=== PATIENT | male | born 1975 | race Caucasian/White ===

== ENCOUNTER 2022-10-06 10:42 | Emergency (ER) | payer OTHER, SELFPAY ==
[2022-10-06 10:53] VITALS: BP 110/81; PULSE 86; RESP 16; TEMP 36; O2SAT 98; BMI 27.1
[2022-10-06 11:09] VITALS: BP 133/83; PULSE 87; RESP 16; TEMP 36.7; O2SAT 96
--- NOTE | 2022-10-06 11:21 | PC.NURSE ---
pt alert to place but not date. He is pacing and diaphoretic, CIWA score 15. Provider notified. Asserts the he will leave in 15 minutes if he doesn't receive phenobarb.
--- NOTE | 2022-10-06 11:29 | ED_ITS ---
HPI - Alcohol General Chief Complaint: ETOH/Substance Use Stated Complaint: needs medical clearance? Time Seen by Provider: 10/06/22 11:06 Source: patient and family Mode of arrival: ambulatory Limitations: no limitations History of Present Illness HPI narrative: 47-year-old male with a history of hypertension, hyperlipidemia, [id number] diabetes, bipolar disorder, PSTD, Crohns, alcohol use disorder who presents with complaints of seeking detox. Patient reports that he drinks 3 pt of rum daily. He did have 3 nips this morning. He denies Any additional substance use. he reports he has been treated for phenobarbital in the past for alcohol withdrawal which has been helpful. He has adverse side effects secondary to benzodiazepine and so avoids these. He reports feeling depressed. Denies any SI or HI. No physical complaints Related Data Allergies Allergy/AdvReac Type Severity Reaction Status Date / Time bee pollen [Bee Stings] Allergy Severe ANAPHYLAXIS Verified 10/06/22 10:51 codeine [Codeine] Allergy Mild Verified 10/06/22 10:51 Review of Systems Review of Systems: Yes all other systems are reviewed and are negative Constitutional: Constitutional: Reports no additional constitutional complaints, Denies body ache(s), Denies chills, Denies fever(s), Denies headache(s) and Denies weakness Eyes: Eyes: Reports no additional eye complaints and Denies change in vision ENT: Reports system reviewed and no additional complaints, except as documented, Denies dizziness, Denies headache(s), Denies nasal congestion, Denies nasal discharge and Denies neck pain Cardiovascular: Cardiovascular: Reports no additional cardiovascular complaints, Denies chest pain, Denies leg edema and Denies dyspnea Respiratory: Respiratory: Reports no additional respiratory complaints, Denies cough and Denies dyspnea Gastrointestinal: Gastrointestinal: Reports no additional gastrointestinal complaints, Denies abdominal pain, Denies diarrhea, Denies nausea and Denies vomiting Genitourinary: Genitourinary: Denies urinary incontinence Musculoskeletal: Musculoskeletal: Reports no additional musculoskeletal complaints, Denies back pain, Denies arthralgias, Denies joint swelling, Denies neck pain, Denies numbness and Denies tingling Integumentary/Breasts: Skin/Breast: Reports system reviewed and no additional complaints, except as docu and Denies rash Neurologic: Reports system reviewed and no additional complaints, except as documented, Denies dizziness, Denies headache(s), Denies numbness, Denies tingling and Denies weakness Psychiatric: Psychiatric: Reports anxiety, Reports depression, Denies homicidal ideation and Denies suicidal ideation [facility] Past Medical History Attestation statement: The following information was validated with the patient. Source: old records reviewed and nursing notes reviewed Medical History Acute Crohn's disease Alcohol use disorder Bipolar disorder Diabetes type 2, controlled Hyperlipemia Hypertension PTSD (post-traumatic stress disorder) Social History Social History Alcohol intake: current Alcohol intake frequency: 3 or more drinks per day Smoked in Last 30 Days: No Use of substances other than those prescribed or required for medical reasons: Yes Substance Use Type: Marijuana Advance Directives: No Advance Directives Information Provided: Yes Physical Exam ED Vital Signs: Vital Signs - 24 hr 10/06/22 10:53 10/06/22 11:09 10/06/22 14:46 Temperature 96.8 F 98.0 F Pulse Rate 86 87 87 Respiratory Rate 16 16 18 Blood Pressure 110/81 133/83 114/77 Pulse Oximetry 98 96 Oxygen Delivery Method Room Air Room Air BMI result Body Mass Index 27.1 Const Other: +agitated, pacing General: alert and anxious Orientation/consciousness: patient oriented x3 Limitations: no limitations HENMT Head: Yes normal to inspection Ears: hearing grossly normal bilaterally Eyes General: appearance normal, both eyes and all related structures Pupils: Equal, round and reactive pupils present Neck Neck: Yes normal visual inspection Chest Chest palpation & inspection: normal inspection of the chest Resp Effort & Inspection: normal respiratory effort Auscultation: clear to auscultation bilaterally Cardio Rate: regular rate Rhythm: regular rhythm Peripheral pulses: Peripheral pulses 2+ throughout GI Inspection: Yes normal to inspection Neuro General: patient oriented x3 Cranial nerves: Yes Equal, round and reactive pupils present Course Reevaluation(s) Reevaluation #1: 1450- cleared by care team. Pending recovery nurses evaluation for possible detox Reevaluation #2: 1530-Nursing has informed me that the patient does not want to wait to be seen by the recovery nurse for detox bed placement. He would like to go home with his caregiver. No SI/HI. Ambulating with steady gait. Medical Decision Making Medical Decision Making [facility] Narrative: 47-year-old male here with complaints of seeking medical clearance for detox for alcohol. Patient reports drinks rum daily. Last drink several hours prior to arrival. No additional substance use. Patient reports feeling depressed. He denies suicidal thoughts. He is quite agitated, pacing, quite anxious. I did receive a call from the [facility] medical screener. Patient has been there several times for detox. She knows this patient well and is concerned that he may need a crisis evaluation. No physical complaints will obtain labs, drug screen, COVID screen. Patient reports he is unable to take benzodiazepines due to adverse side effects. He has tolerated phenobarbital well in the past. Will initiate protocol. Patient needs crisis clearance prior to detox bed search. Differential Diagnosis Differential Diagnoses: The differential diagnosis associated with the presentation includes alcohol withdrawal Consult Healthcare Provider Management of the patient was discussed with: Behavioral Health Provider Patient seen by CARE team (Giovanna)- does not feel that patient qualifies for inpatient psych or has any immediate risks. Lab Data [facility] Lab Attestation statement: I reviewed the patient's lab results. 10/06/22 11:38 10/06/22 11:38 Labs: Lab Results 10/06/22 10/06/22 10/06/22 Range/Units 11:38 11:38 11:38 WBC 4.5 L (4.8-10.8) X10*3/uL RBC 3.54 L (4.60-5.80) X10*6/uL Hgb 10.4 L (14.0-18.0) g/dl Hct 30.6 L (42.0-52.0) % MCV 86.4 (80.0-98.0) fL MCH 29.4 (27.0-33.0) pg MCHC 34.0 (31.0-36.0) g/dl RDW 14.8 (11.0-16.0) % Plt Count 226 (160-400) X10*3/uL MPV 11.1 (9.4-12.4) fL Immature Gran % (Auto) 0.2 (0.0-0.4) % Neut % (Auto) 41.2 L (45-73) % Lymph % (Auto) 45.4 H (20-40) % [place] % (Auto) 11.7 H (2-11) % Eos % (Auto) 1.3 (0-4) % Baso % (Auto) 0.2 (0-2) % Lymph # (Auto) 2.1 (1.2-4.9) X10*3/uL [place] # (Auto) 0.5 (0.1-1.2) X10*3/uL Eos # (Auto) 0.1 (0.0-0.4) X10*3/uL Baso # (Auto) 0.0 (0.0-0.2) X10*3/uL Abs Immat Gran (auto) 0.01 (0.00-0.03) X10*3/uL Absolute Neuts (auto) 1.9 L (2.0-8.3) x10*3/uL Absolute Nucleated RBC 0.000 (0.0-0.012) X10*3/uL Nucleated RBC % (auto) 0.0 (0.0-0.2) /100WBC Sodium 134 L (135-145) mmol/L Potassium 4.3 (3.3-5.1) mmol/L Chloride 98 (96-108) mmol/L Carbon Dioxide 25 (22-29) mmol/L Anion Gap 15 (12-20) BUN 22 H (9-16) mg/dL Creatinine 1.39 (0.5-1.4) mg/dL Estim Creat Clear Calc 71.3 Estimated GFR 55 Random Glucose 146 H (60-115) mg/dL Calcium 8.9 (8.4-10.2) mg/dL Total Bilirubin 0.5 (0.0-1.0) mg/dL Direct Bilirubin 0.2 (0.0-0.5) mg/dL AST 44 H (5-37) U/L ALT 29 (0-40) U/L Alkaline Phosphatase 84 (39-117) U/L Total Protein 6.9 (6.5-8.0) g/dL Albumin 3.9 (3.5-5.0) g/dL Salicylates < 5.0 L (15-30) mg/dL Urine Opiates Screen (Not Detect) Urine Fentanyl Screen (Not Detect) Acetaminophen < 17 (<30) mcg/mL Ur Barbiturates Screen (Not Detect) Ur Phencyclidine Scrn (Not Detect) Ur Amphetamines Screen (Not Detect) U Benzodiazepines Scrn (Not Detect) Urine Cocaine Screen (Not Detect) U Marijuana (THC) Screen (Not Detect) Ethyl Alcohol < 10 mg/dL COVID-19 (PAMELA) Negative (Negative) COVID-19 Clin Com See Note 10/06/22 Range/Units 12:27 WBC (4.8-10.8) X10*3/uL RBC (4.60-5.80) X10*6/uL Hgb (14.0-18.0) g/dl Hct (42.0-52.0) % MCV (80.0-98.0) fL MCH (27.0-33.0) pg MCHC (31.0-36.0) g/dl RDW (11.0-16.0) % Plt Count (160-400) X10*3/uL MPV (9.4-12.4) fL Immature Gran % (Auto) (0.0-0.4) % Neut % (Auto) (45-73) % Lymph % (Auto) (20-40) % [place] % (Auto) (2-11) % Eos % (Auto) (0-4) % Baso % (Auto) (0-2) % Lymph # (Auto) (1.2-4.9) X10*3/uL [place] # (Auto) (0.1-1.2) X10*3/uL Eos # (Auto) (0.0-0.4) X10*3/uL Baso # (Auto) (0.0-0.2) X10*3/uL Abs Immat Gran (auto) (0.00-0.03) X10*3/uL Absolute Neuts (auto) (2.0-8.3) x10*3/uL Absolute Nucleated RBC (0.0-0.012) X10*3/uL Nucleated RBC % (auto) (0.0-0.2) /100WBC Sodium (135-145) mmol/L Potassium (3.3-5.1) mmol/L Chloride (96-108) mmol/L Carbon Dioxide (22-29) mmol/L Anion Gap (12-20) BUN (9-16) mg/dL Creatinine (0.5-1.4) mg/dL Estim Creat Clear Calc Estimated GFR Random Glucose (60-115) mg/dL Calcium (8.4-10.2) mg/dL Total Bilirubin (0.0-1.0) mg/dL Direct Bilirubin (0.0-0.5) mg/dL AST (5-37) U/L ALT (0-40) U/L Alkaline Phosphatase (39-117) U/L Total Protein (6.5-8.0) g/dL Albumin (3.5-5.0) g/dL Salicylates (15-30) mg/dL Urine Opiates Screen Not Detected (Not Detect) Urine Fentanyl Screen Not Detected (Not Detect) Acetaminophen (<30) mcg/mL Ur Barbiturates Screen POSITIVE H (Not Detect) Ur Phencyclidine Scrn Not Detected (Not Detect) Ur Amphetamines Screen POSITIVE H (Not Detect) U Benzodiazepines Scrn POSITIVE H (Not Detect) Urine Cocaine Screen Not Detected (Not Detect) U Marijuana (THC) Screen POSITIVE H (Not Detect) Ethyl Alcohol mg/dL COVID-19 (PAMELA) (Negative) COVID-19 Clin Com Medications Administered Discontinued Medications Generic Name Dose Route Start Last Admin Trade Name Freq PRN Reason Stop Dose Admin Phenobarbital Sodium 310 mg 10/06/22 12:00 10/06/22 11:43 Phenobarbital Sodium 130 Mg/Ml Im Once IM 10/06/22 12:01 310 mg ONCE ONE Administration Protocol Phenobarbital Sodium 230 mg 10/06/22 15:00 10/06/22 14:50 Phenobarbital Sodium 130 Mg/Ml Vial Im Q3hx2 IM 10/06/22 18:01 230 mg Q3H MARIA C Administration Protocol Discharge Plan Discharge Clinical Impression: Alcohol use disorder Patient Disposition: Home, Self-Care Instructions: Alcohol Use Disorder (ED) Additional Instructions: we did offer to have the acid recovery operator look for a detox bed for you but you did not want to wait for this process to take place if you change your mind you are welcome to return at any time Referrals: Physician,Thao J [Primary Care Provider] - 1 week Interventions: [place]-Suicide Risk Severity Scale Last Done: 10/06/22 11:06 ED Discharge Assessment Last Done: 10/06/22 15:33 Discharge Date/Time: 10/06/22 15:34
[2022-10-06] MEDS: PHENobarbitaL sodium 130 MG/ML IM ONCE 310 MG IM (11:43)
[2022-10-06 11:45] LABS: MANUAL DIFF FLAG NO
--- NOTE | 2022-10-06 11:46 | PC.NURSE ---
pt medicated with phenobarb per order. Pt resting.
[2022-10-06 11:49] LABS: Basophils Percent Auto 0.2 % (0-2); Eosinophils Absolute Auto 0.1 X10*3/uL (0.0-0.4); Eosinophils Percent Auto 1.3 % (0-4); Hematocrit 30.6 % (42.0-52.0); Hemoglobin 10.4 g/dl (14.0-18.0); Imm Gran Abs Auto 0.01 X10*3/uL (0.00-0.03); Imm Gran Pct Auto 0.2 % (0.0-0.4); Lymphocytes Absolute Auto 2.1 X10*3/uL (1.2-4.9); Lymphocytes Percent Auto 45.4 % (20-40); Mean Corpuscular Hemoglobin 29.4 pg (27.0-33.0); Mean Corpuscular Volume 86.4 fL (80.0-98.0); Mean Platelet Volume 11.1 fL (9.4-12.4); Monocytes Absolute Auto 0.5 X10*3/uL (0.1-1.2); Monocytes Percent Auto 11.7 % (2-11); Neutrophils Absolute Auto 1.9 x10*3/uL (2.0-8.3); Neutrophils Percent Auto 41.2 % (45-73); Platelet Count 226 X10*3/uL (160-400); Red Blood Count 3.54 X10*6/uL (4.60-5.80); Red Cell Distribution Width 14.8 % (11.0-16.0); White Blood Count 4.5 X10*3/uL (4.8-10.8)
[2022-10-06 12:01] LABS: COVID-19 Test Negative (Negative); IDNOW Serial# 16C4AD1C
[2022-10-06 12:12] LABS: Acetaminophen LAB < 17 mcg/mL (<30); Alanine Aminotransferase 29 U/L (0-40); Albumin Level 3.9 g/dL (3.5-5.0); Alkaline Phosphatase 84 U/L (39-117); Anion Gap 15 (12-20); Aspartate Amino Transferase 44 U/L (5-37); Bilirubin Direct 0.2 mg/dL (0.0-0.5); Bilirubin Total 0.5 mg/dL (0.0-1.0); Blood Urea Nitrogen 22 mg/dL (9-16); Calcium 8.9 mg/dL (8.4-10.2); Carbon Dioxide 25 mmol/L (22-29); Chloride 98 mmol/L (96-108); Creatinine Clr Calc Pharmacy 71.3; Estimated Glomerular Filt Rate 55; Ethanol < 10 mg/dL; Glucose Random 146 mg/dL (60-115); Potassium 4.3 mmol/L (3.3-5.1); Salicylate < 5.0 mg/dL (15-30); Sodium 134 mmol/L (135-145); Total Protein 6.9 g/dL (6.5-8.0)
[2022-10-06 12:45] LABS: Amphetamine Screen Urine POSITIVE (Not Detect); Barbiturates, Urine POSITIVE (Not Detect); Benzodiazepines Screen Urine POSITIVE (Not Detect); Cannabinoid Screen Urine POSITIVE (Not Detect); Cocaine Screen Urine Not Detected (Not Detect); Fentanyl, urine Not Detected (Not Detect); Opiate Screen Urine Not Detected (Not Detect); Phencyclidine Screen Urine Not Detected (Not Detect)
--- NOTE | 2022-10-06 14:35 | MHC.CARE ---
Patient is denying SI HI and psychosis. Patient is seeking detox, is with a friend who also is a customer care manager for patient and has brought him his medication. He is not voluntary for inpt admission and in t/w opinion he would not benefit from this LOC as he has robust community treaters and supports and is OP tx compliant.
[2022-10-06 14:46] VITALS: BP 114/77; PULSE 87; RESP 18
[2022-10-06] MEDS: PHENobarbitaL sodium 130 MG/ML VIAL IM Q3Hx2 230 MG IM (14:50)
--- NOTE | 2022-10-06 15:00 | MHC.CARE ---
This is a 47 year old white male, domiciled with and children in [facility] presenting to the ED seeking detox, had thought he would get into [facility], the male bed was not available as he had thought. He is referred for assessment due to his presentation, and met with by this selling underwriter. Patient is accompanied by his ship harbor pilot and best friend of many years, Ed, who drives him to his methadone appts, helps with medication and emotional support. Ed brought the patient in due to concerns related to withdrawal and a need for patient to have phenobarbital. Patient reports and Ed confirms, a history of etoh use and bipolar d/o. Patient reports one admission inpt LOC to [facility] five months ago due to madhu induced psychosis. He had his meds adjusted and reports no hallucinations/ delusions, no SI HI or AH VH at this time. Ne has no legal issues, no state agency involvement. He appears to struggle with recall / memory though is visibly tremulous and scratching arms due to withdrawal sx and feeling like he is crawling out of his skin. His etoh use is Bacardi, upwards of 3.5 pints per day. He was sober for 12 years he reports, and relapse in February. 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 He reports his primary mood is guilt/ shame, disappointment in himself. His sleep is fair, he is less hungry than usual. He is acutely anxious regarding being held against his will, which this selling underwriter confirms will not happen as he is denying safety concerns, denying SI HI and has providers such as Frannie Ignacio (? sp) agency unknown/ patient unable to recall. Mohit Knight who [facility] and talk therapy as well as a therapist named Marlena, he sees for therapy, last visit 2 weeks ago. Patient has a safe home and supports to return to and is aware of ways to avoid going into acute withdrawal, and his / friend are supports. A request was sent to starch mangle tender to speak with patient about services including but not not limited to detox admissions.
--- NOTE | 2022-10-06 15:52 | MHC.RECOVRN ---
This personal lines underwriter met w/ patient, patient was pacing, crying, raising voice to [facility] staff. Patient reports 2 days ago, quit drinking, reports drinking 3 pints daily, last use 2 days ago, had 3 nips. Patient visibly tremulous, pacing, agitated. Patient requesting detox. Patient did not answer to this personal lines underwriter when asked about SI. Patient reports hx of psychosis and AV,VH. This personal lines underwriter reviewed w/ Provider Zeinab who clarified that consult was put in to care team for psych evaluation, prior to ATS bedsearch. CM aware.
== END 2022-10-06 15:34 | disposition home or self-care (01) ==
PROVIDERS: Nurse Practitioner Family; Emergency Provider Student in an Organized Health Care Education/Training Program
DX: F10.20 Alcohol dependence, uncomplicated (principal); Y90.0 Blood alcohol level of less than 20 mg/100 ml; R45.1 Restlessness and agitation; E11.9 Type 2 diabetes mellitus without complications; I10 Essential (primary) hypertension; E78.5 Hyperlipidemia, unspecified; F41.9 Anxiety disorder, unspecified; F31.9 Bipolar disorder, unspecified; F43.10 Post-traumatic stress disorder, unspecified; F12.90 Cannabis use, unspecified, uncomplicated; F11.20 Opioid dependence, uncomplicated; Z79.899 Other long term (current) drug therapy; Z20.822 Contact with and (suspected) exposure to COVID-19
CPT/HCPCS: 80048; 80076; 80143; 80179; 80307; 82077; 85025; 87635; 96372; 99285; J2560

== ENCOUNTER 2022-10-09 09:22 | Emergency (ER) | payer OTHER, SELFPAY ==
[2022-10-09 09:33] VITALS: BP 142/82; PULSE 79; RESP 16; TEMP 37.4; O2SAT 97; BMI 27.1
--- NOTE | 2022-10-09 09:36 | ED.GENADULT ---
HPI - General Adult General Chief complaint: ETOH/Substance Use <ASH Haji - Last Filed: 10/09/22 18:09> Stated complaint: SEEKING DETOX <ASH Haji - Last Filed: 10/09/22 18:09> Time Seen by Provider: 10/09/22 09:36 <ASH Haji Last Filed: 10/09/22 18:09> Source: patient and EMS <ASH Haji Last Filed: 10/09/22 18:09> Mode of arrival: EMS <ASH Haji Last Filed: 10/09/22 18:09> Limitations: no limitations <ASH Haji Last Filed: 10/09/22 18:09> History of Present Illness HPI narrative: Patient is a 47 year old assigned male at with a history of alcohol abuse with withdrawal seizures presenting to the emergency department today requesting medical clearance for detox. Patient states that he tried to go to [facility] today but they turned him away telling him to come to the ER for medical clearance first. Patient states that benzos make him sick but phenobarb works well for his withdrawal symptoms. Patient states that he last drank this morning, 2 nips, but he usually drinks at least 3 pints a day. Patient denies any dizziness, lightheadedness, abdominal pain, nausea, vomiting, fever, chills, blurry vision, double vision, loss of vision, chest pain, difficulty breathing, shortness of breath, back pain, night sweats, pain with urination, increased urinary frequency, increased urinary urgency, blood in his urine or stool, syncope or a near syncopal episode, recent trauma or falls, bowel incontinence, bladder incontinence, bowel retention, bladder retention, or any other complaints at this time. <ASH Haji - Last Filed: 10/09/22 18:09> Severity: mild <ASH Haji Last Filed: 10/09/22 18:09> Relieving factors: none <ASH Haji - Last Filed: 10/09/22 18:09> Exacerbating factors: none <ASH Haji Last Filed: 10/09/22 18:09> Associated symptoms: denies other symptoms <ASH Haji - Last Filed: 10/09/22 18:09> Treatments prior to arrival: none <ASH Haji - Last Filed: 10/09/22 18:09> Related Data Allergies/adverse reactions: Allergies Allergy/AdvReac Type Severity Reaction Status Date / Time bee pollen [Bee Stings] Allergy Severe ANAPHYLAXIS Verified 10/06/22 10:51 codeine [Codeine] Allergy Mild Verified 10/06/22 10:51 <ASH Haji - Last Filed: 10/09/22 18:09> Review of Systems Constitutional: Constitutional: Reports no additional constitutional complaints, Denies chills, Denies fever(s) and Denies night sweats <ASH Haji Last Filed: 10/09/22 18:09> Eyes: Eyes: Reports no additional eye complaints, Denies blurry vision, Denies change in vision, Denies diplopia, Denies eye discharge, Denies loss of vision and Denies eye pain <ASH Haji Last Filed: 10/09/22 18:09> ENT: Denies dizziness <ASH Haji - Last Filed: 10/09/22 18:09> Cardiovascular: Cardiovascular: Reports no additional cardiovascular complaints, Denies chest pain, Denies lightheadedness, Denies Loss of Consciousness and Denies dyspnea <ASH Haji Last Filed: 10/09/22 18:09> Respiratory: Respiratory: Reports no additional respiratory complaints and Denies dyspnea <ASH Haji Last Filed: 10/09/22 18:09> Gastrointestinal: Gastrointestinal: Reports no additional gastrointestinal complaints, Denies abdominal pain, Denies melena, Denies hematochezia, Denies change in bowel habits and Denies change in stool character <ASH Haji Last Filed: 10/09/22 18:09> Genitourinary: Genitourinary: Reports no additional male genitourinary complaints, Denies hematuria, Denies oliguria, Denies difficulty urinating, Denies dysuria, Denies urinary frequency, Denies urinary hesitancy, Denies urinary incontinence and Denies urinary urgency <ASH Haji Last Filed: 10/09/22 18:09> Musculoskeletal: Musculoskeletal: Reports no additional musculoskeletal complaints, Denies numbness and Denies tingling <ASH Haji - Last Filed: 10/09/22 18:09> Neurologic: Denies dizziness, Denies loss of vision, Denies numbness and Denies tingling <ASH Haji - Last Filed: 10/09/22 18:09> Psychiatric: Psychiatric: Reports no additional psychiatric complaints <ASH Haji - Last Filed: 10/09/22 18:09> Endocrine: Endocrine: Reports no additional endocrine complaints <ASH Haji - Last Filed: 10/09/22 18:09> Hematologic/Lymphatic: Hematologic/Lymphatic: Reports no additional hematologic/lymphatic complaints <ASH Haji - Last Filed: 10/09/22 18:09> Allergic/Immunologic: Allergic/Immunologic: Reports no additional allergic/immunologic complaints <ASH Haji - Last Filed: 10/09/22 18:09> PMFSH Past Medical History Attestation statement: The following information was validated with the patient. <ASH Haji - Last Filed: 10/09/22 18:09> Source: old records reviewed and nursing notes reviewed <ASH Haji - Last Filed: 10/09/22 18:09> Medical History: Medical History Acute Crohn's disease Alcohol use disorder Bipolar disorder Diabetes type 2, controlled Hyperlipemia Hypertension PTSD (post-traumatic stress disorder) <ASH Haji - Last Filed: 10/09/22 18:09> Social History Social History: Social History Alcohol intake: current Alcohol intake frequency: 3 or more drinks per day Substance Use Type: Marijuana Advance Directives: No Advance Directives Information Provided: Yes <ASH Haji - Last Filed: 10/09/22 18:09> Physical Exam ED Vital Signs: Vital Signs - 24 hr 10/09/22 09:33 10/09/22 14:32 Temperature 99.4 F 99.3 F Pulse Rate 79 72 Respiratory Rate 16 15 Blood Pressure 142/82 H 187/103 H Pulse Oximetry 97 95 Oxygen Delivery Method Room Air Room Air BMI result Body Mass Index 27.1 <ASH Haji - Last Filed: 10/09/22 18:09> Vital Signs - 24 hr 10/09/22 09:33 10/09/22 14:32 Temperature 99.4 F 99.3 F Pulse Rate 79 72 Respiratory Rate 16 15 Blood Pressure 142/82 H 187/103 H Pulse Oximetry 97 95 Oxygen Delivery Method Room Air Room Air BMI result Body Mass Index 27.1 <ASH Pepper - Last Filed: 10/09/22 20:52> Const General: cooperative, no acute distress, alert and awake <ASH Haji - Last Filed: 10/09/22 18:09> Nutritional Appearance: well nourished <ASH Haji - Last Filed: 10/09/22 18:09> Orientation/consciousness: patient oriented x3 <ASH Haji - Last Filed: 10/09/22 18:09> Limitations: no limitations <ASH Haji - Last Filed: 10/09/22 18:09> HENMT Head: Yes normal to inspection and Yes atraumatic <ASH Haji - Last Filed: 10/09/22 18:09> Ears: hearing grossly normal bilaterally and external ears normal <ASH Haji - Last Filed: 10/09/22 18:09> General nose exam: Normal external nose present, no nasal discharge noted and no epistaxis <ASH Haji - Last Filed: 10/09/22 18:09> Face and sinus: Yes normal facial exam, No abrasion and No laceration <ASH Haji - Last Filed: 10/09/22 18:09> Mouth: Normal oral and palatal mucosa present, no drooling and no muffled voice <ASH Haji - Last Filed: 10/09/22 18:09> Eyes General: appearance normal, both eyes and all related structures <ASH Haji - Last Filed: 10/09/22 18:09> Periorbital: periorbital findings normal <ASH Haji - Last Filed: 10/09/22 18:09> Eyelids: Yes eyelids normal <ASH Haji - Last Filed: 10/09/22 18:09> Conjunctivae: conjunctivae normal <Micheline Solares PA - Last Filed: 10/09/22 18:09> Pupils: Equal, round and reactive pupils present <Micheline Solares PA - Last Filed: 10/09/22 18:09> EOM: EOMs intact bilaterally <Micheline Solares PA - Last Filed: 10/09/22 18:09> Neck Neck: Yes normal visual inspection, Yes full ROM and Yes no lymphadenopathy <Micheline Solares PA - Last Filed: 10/09/22 18:09> Chest Chest palpation & inspection: normal inspection of the chest <Micheline Solares PA - Last Filed: 10/09/22 18:09> Resp Effort & Inspection: normal respiratory effort and able to speak in complete sentences <Micheline Solares PA - Last Filed: 10/09/22 18:09> Auscultation: clear to auscultation bilaterally <Micheline Solares PA - Last Filed: 10/09/22 18:09> Cardio Rate: regular rate <Micheline Solares PA - Last Filed: 10/09/22 18:09> Rhythm: regular rhythm <Micheline Solares PA - Last Filed: 10/09/22 18:09> GI Inspection: Yes normal to inspection <Micheline Solares PA - Last Filed: 10/09/22 18:09> Palpation (GI): Soft to palpation, not firm, nontender, no guarding and not rigid <Micheline Solares PA - Last Filed: 10/09/22 18:09> Neuro General: patient oriented x3 and moves all extremities <Micheline Dineroezra PA - Last Filed: 10/09/22 18:09> Cranial nerves: Yes Equal, round and reactive pupils present <Micheline Solares PA - Last Filed: 10/09/22 18:09> Cognition (Neuro): normal cognition <Micheline DineroASH munguia - Last Filed: 10/09/22 18:09> Motor exam (neuro): 5/5 motor strength present throughout <Micheline Solares PA - Last Filed: 10/09/22 18:09> Sensory Exam: Normal double simultaneous stimulation for sensation <Micheline Dineroezra PA - Last Filed: 10/09/22 18:09> Coordination: [id number] test normal <ASH Haji - Last Filed: 10/09/22 18:09> Extrem General: Yes normal to inspection, Yes full ROM and Yes capillary refill normal <ASH Haji - Last Filed: 10/09/22 18:09> Psych Appearance: grossly normal <ASH Haji - Last Filed: 10/09/22 18:09> Mental Status: mental status grossly normal <ASH Haji Last Filed: 10/09/22 18:09> Affect: normal affect <ASH Haji - Last Filed: 10/09/22 18:09> Attitude: cooperative <ASH Haji - Last Filed: 10/09/22 18:09> Thought process: Normal thought process present <ASH Haji Last Filed: 10/09/22 18:09> Thought content: Normal thought content present <ASH Haji Last Filed: 10/09/22 18:09> Insight: Good insight present (Psych) <ASH Haji Last Filed: 10/09/22 18:09> Course Reevaluation(s) Reevaluation #1: Difficult time finding patient a lift per patient. His friend will drive him to detox. Patient ambulating with steady gait around the department, no medical complaints excited to go to alcohol detox. Educated patient on diagnosis and treatment plan, answered all question, patient verbalizes understanding. At this time patient will be discharged home, advised to return with new or worsening symptoms. Educated on worrisome signs and symptoms and when to return. At this time I feel comfortable discharge home. <ASH Pepper - Last Filed: 10/09/22 20:52> Medications Administered Discontinued Medications Generic Name Dose Route Start Last Admin Trade Name Freq PRN Reason Stop Dose Admin Sodium Chloride 1,000 mls @ 999 mls/hr 10/09/22 11:30 10/09/22 17:31 Ns IV 10/09/22 12:30 Infused .Q1H1M MARIA C Infusion Methadone HCl 70 mg 10/09/22 16:19 10/09/22 17:25 Methadone Hcl 20 Mg/2 Ml Oral.Conc PO 10/09/22 16:20 70 mg ONCE ONE Administration Phenobarbital Sodium 90 mg 10/09/22 09:46 10/09/22 10:39 Phenobarbital Sodium 65 Mg/Ml Vial IM 10/09/22 09:47 Not Given ONCE ONE Phenobarbital Sodium 90 mg 10/09/22 10:30 10/09/22 10:34 Phenobarbital Sodium 130 Mg/Ml Vial IM 10/09/22 10:31 90 mg ONCE ONE Administration Phenobarbital Sodium 310 mg 10/09/22 12:15 10/09/22 12:17 Phenobarbital Sodium 130 Mg/Ml Vial IM 10/09/22 12:16 310 mg ONCE ONE Administration Phenobarbital Sodium 232.7 mg 10/09/22 15:30 10/09/22 15:33 Phenobarbital Sodium 130 Mg/Ml Vial IM 10/09/22 15:31 232.7 mg ONCE ONE Administration Phenobarbital Sodium 130 mg 10/09/22 20:30 10/09/22 20:46 Phenobarbital Sodium 130 Mg/Ml Vial IM 10/09/22 20:31 130 mg ONCE ONE Administration <ASH Haji - Last Filed: 10/09/22 18:09> Medications Administered Discontinued Medications Generic Name Dose Route Start Last Admin Trade Name Freq PRN Reason Stop Dose Admin Sodium Chloride 1,000 mls @ 999 mls/hr 10/09/22 11:30 10/09/22 17:31 Ns IV 10/09/22 12:30 Infused .Q1H1M MARIA C Infusion Methadone HCl 70 mg 10/09/22 16:19 10/09/22 17:25 Methadone Hcl 20 Mg/2 Ml Oral.Conc PO 10/09/22 16:20 70 mg ONCE ONE Administration Phenobarbital Sodium 90 mg 10/09/22 09:46 10/09/22 10:39 Phenobarbital Sodium 65 Mg/Ml Vial IM 10/09/22 09:47 Not Given ONCE ONE Phenobarbital Sodium 90 mg 10/09/22 10:30 10/09/22 10:34 Phenobarbital Sodium 130 Mg/Ml Vial IM 10/09/22 10:31 90 mg ONCE ONE Administration Phenobarbital Sodium 310 mg 10/09/22 12:15 10/09/22 12:17 Phenobarbital Sodium 130 Mg/Ml Vial IM 10/09/22 12:16 310 mg ONCE ONE Administration Phenobarbital Sodium 232.7 mg 10/09/22 15:30 10/09/22 15:33 Phenobarbital Sodium 130 Mg/Ml Vial IM 10/09/22 15:31 232.7 mg ONCE ONE Administration Phenobarbital Sodium 130 mg 10/09/22 20:30 10/09/22 20:46 Phenobarbital Sodium 130 Mg/Ml Vial IM 10/09/22 20:31 130 mg ONCE ONE Administration <ASH Pepper - Last Filed: 10/09/22 20:52> Medical Decision Making Medical Decision Making [facility] Narrative: Patient is a 47 year old assigned male at with a history of alcohol abuse presenting to the emergency department today with acute alcohol withdrawal. Patient's physical exam showed an uncomfortable individual going through alcohol and opiate withdrawal but was otherwise unremarkable. Patient's blood work was unremarkable. Patient's EKG was unremarkable. I explained my physical exam findings as well as all test results to the patient and the patient's . I answered all questions asked by the patient and the patient's . Patient received IM phenobarb which he stated helped his symptoms significantly. Patient was given 70mg of methadone. Patient has been accepted at [facility] and will be discharged there after the trolley coach driver confirms that he can tolerate sitting in a Lyft to get there. Patient was offered hospital admission for continued phenobarb hwoever, he refused. Patient stated that if he could not go to [facility], he would leave here against medical advice. <ASH Haji - Last Filed: 10/09/22 18:09> Differential Diagnosis Differential Diagnoses: The differential diagnosis associated with the presentation includes <ASH Haji - Last Filed: 10/09/22 18:09> alcohol withdrawal, opiate use <ASH Haji - Last Filed: 10/09/22 18:09> Consult Healthcare Provider Management of the patient was discussed with: Behavioral Health Provider (recommended discharge to [facility] detox) <ASH Haji - Last Filed: 10/09/22 18:09> Lab Data [facility] Lab Attestation statement: I reviewed the patient's lab results. <ASH Haji - Last Filed: 10/09/22 18:09> Result Diagrams: 10/09/22 10:31 10/09/22 10:31 <ASH Haji - Last Filed: 10/09/22 18:09> Labs: Lab Results 10/09/22 10/09/22 10/09/22 Range/Units 09:45 09:45 10:31 WBC (4.8-10.8) X10*3/uL RBC (4.60-5.80) X10*6/uL Hgb (14.0-18.0) g/dl Hct (42.0-52.0) % MCV (80.0-98.0) fL MCH (27.0-33.0) pg MCHC (31.0-36.0) g/dl RDW (11.0-16.0) % Plt Count (160-400) X10*3/uL MPV (9.4-12.4) fL Immature Gran % (Auto) (0.0-0.4) % Neut % (Auto) (45-73) % Lymph % (Auto) (20-40) % [place] % (Auto) (2-11) % Eos % (Auto) (0-4) % Baso % (Auto) (0-2) % Lymph # (Auto) (1.2-4.9) X10*3/uL [place] # (Auto) (0.1-1.2) X10*3/uL Eos # (Auto) (0.0-0.4) X10*3/uL Baso # (Auto) (0.0-0.2) X10*3/uL Abs Immat Gran (auto) (0.00-0.03) X10*3/uL Absolute Neuts (auto) (2.0-8.3) x10*3/uL Absolute Nucleated RBC (0.0-0.012) X10*3/uL Nucleated RBC % (auto) (0.0-0.2) /100WBC Sodium 133 L (135-145) mmol/L Potassium 4.7 (3.3-5.1) mmol/L Chloride 92 L (96-108) mmol/L Carbon Dioxide 18 L (22-29) mmol/L Anion Gap 28 H (12-20) BUN 16 (9-16) mg/dL Creatinine 1.17 (0.5-1.4) mg/dL Estim Creat Clear Calc 84.7 Estimated GFR > 60 Random Glucose 147 H (60-115) mg/dL Calcium 9.9 D (8.4-10.2) mg/dL Total Bilirubin 0.5 (0.0-1.0) mg/dL AST 44 H (5-37) U/L ALT 29 (0-40) U/L Alkaline Phosphatase 85 (39-117) U/L Total Protein 7.4 (6.5-8.0) g/dL Albumin 4.3 (3.5-5.0) g/dL Urine Color Yellow Urine Appearance Clear Urine pH 6.0 (5.0-9.0) Ur Specific [place] 1.010 (1.005-1.025) Urine Protein Negative (Neg-Trace) mg/dL Urine Glucose (UA) >=1000 H (Negative) mg/dL Urine Ketones 15 (Negative) mg/dL Urine Blood Negative (Negative) Urine Nitrite Negative (Negative) Ur Leukocyte Esterase Negative (Negative) Urine RBC 0-2 (0-2) /HPF Urine WBC 0-5 (0-5) /HPF Ur Squamous Epith Cells 0-2 (0-2) /HPF Other Crystals Present Urine Bacteria Trace (None Seen) Hyaline Casts 0-2 (0-2) /LPF Salicylates < 5.0 L (15-30) mg/dL Urine Opiates Screen Not Detected (Not Detect) Urine Fentanyl Screen Not Detected (Not Detect) Acetaminophen < 17 (<30) mcg/mL Ur Barbiturates Screen POSITIVE H (Not Detect) Ur Phencyclidine Scrn Not Detected (Not Detect) Ur Amphetamines Screen Not Detected (Not Detect) U Benzodiazepines Scrn POSITIVE H (Not Detect) Urine Cocaine Screen Not Detected (Not Detect) U Marijuana (THC) Screen Not Detected (Not Detect) Ethyl Alcohol 68 mg/dL 10/09/22 Range/Units 10:31 WBC 6.6 (4.8-10.8) X10*3/uL RBC 3.98 L (4.60-5.80) X10*6/uL Hgb 11.6 L (14.0-18.0) g/dl Hct 34.4 L (42.0-52.0) % MCV 86.4 (80.0-98.0) fL MCH 29.1 (27.0-33.0) pg MCHC 33.7 (31.0-36.0) g/dl RDW 14.8 (11.0-16.0) % Plt Count 414 H D (160-400) X10*3/uL MPV 10.2 (9.4-12.4) fL Immature Gran % (Auto) 0.6 H (0.0-0.4) % Neut % (Auto) 40.1 L (45-73) % Lymph % (Auto) 48.0 H (20-40) % [place] % (Auto) 9.5 (2-11) % Eos % (Auto) 1.5 (0-4) % Baso % (Auto) 0.3 (0-2) % Lymph # (Auto) 3.2 (1.2-4.9) X10*3/uL [place] # (Auto) 0.6 (0.1-1.2) X10*3/uL Eos # (Auto) 0.1 (0.0-0.4) X10*3/uL Baso # (Auto) 0.0 (0.0-0.2) X10*3/uL Abs Immat Gran (auto) 0.04 H (0.00-0.03) X10*3/uL Absolute Neuts (auto) 2.6 (2.0-8.3) x10*3/uL Absolute Nucleated RBC 0.000 (0.0-0.012) X10*3/uL Nucleated RBC % (auto) 0.0 (0.0-0.2) /100WBC Sodium (135-145) mmol/L Potassium (3.3-5.1) mmol/L Chloride (96-108) mmol/L Carbon Dioxide (22-29) mmol/L Anion Gap (12-20) BUN (9-16) mg/dL Creatinine (0.5-1.4) mg/dL Estim Creat Clear Calc Estimated GFR Random Glucose (60-115) mg/dL Calcium (8.4-10.2) mg/dL Total Bilirubin (0.0-1.0) mg/dL AST (5-37) U/L ALT (0-40) U/L Alkaline Phosphatase (39-117) U/L Total Protein (6.5-8.0) g/dL Albumin (3.5-5.0) g/dL Urine Color Urine Appearance Urine pH (5.0-9.0) Ur Specific [place] (1.005-1.025) Urine Protein (Neg-Trace) mg/dL Urine Glucose (UA) (Negative) mg/dL Urine Ketones (Negative) mg/dL Urine Blood (Negative) Urine Nitrite (Negative) Ur Leukocyte Esterase (Negative) Urine RBC (0-2) /HPF Urine WBC (0-5) /HPF Ur Squamous Epith Cells (0-2) /HPF Other Crystals Urine Bacteria (None Seen) Hyaline Casts (0-2) /LPF Salicylates (15-30) mg/dL Urine Opiates Screen (Not Detect) Urine Fentanyl Screen (Not Detect) Acetaminophen (<30) mcg/mL Ur Barbiturates Screen (Not Detect) Ur Phencyclidine Scrn (Not Detect) Ur Amphetamines Screen (Not Detect) U Benzodiazepines Scrn (Not Detect) Urine Cocaine Screen (Not Detect) U Marijuana (THC) Screen (Not Detect) Ethyl Alcohol mg/dL <ASH Haji - Last Filed: 10/09/22 18:09> Lab Results 10/09/22 10/09/22 10/09/22 Range/Units 09:45 09:45 10:31 WBC (4.8-10.8) X10*3/uL RBC (4.60-5.80) X10*6/uL Hgb (14.0-18.0) g/dl Hct (42.0-52.0) % MCV (80.0-98.0) fL MCH (27.0-33.0) pg MCHC (31.0-36.0) g/dl RDW (11.0-16.0) % Plt Count (160-400) X10*3/uL MPV (9.4-12.4) fL Immature Gran % (Auto) (0.0-0.4) % Neut % (Auto) (45-73) % Lymph % (Auto) (20-40) % [place] % (Auto) (2-11) % Eos % (Auto) (0-4) % Baso % (Auto) (0-2) % Lymph # (Auto) (1.2-4.9) X10*3/uL [place] # (Auto) (0.1-1.2) X10*3/uL Eos # (Auto) (0.0-0.4) X10*3/uL Baso # (Auto) (0.0-0.2) X10*3/uL Abs Immat Gran (auto) (0.00-0.03) X10*3/uL Absolute Neuts (auto) (2.0-8.3) x10*3/uL Absolute Nucleated RBC (0.0-0.012) X10*3/uL Nucleated RBC % (auto) (0.0-0.2) /100WBC Sodium 133 L (135-145) mmol/L Potassium 4.7 (3.3-5.1) mmol/L Chloride 92 L (96-108) mmol/L Carbon Dioxide 18 L (22-29) mmol/L Anion Gap 28 H (12-20) BUN 16 (9-16) mg/dL Creatinine 1.17 (0.5-1.4) mg/dL Estim Creat Clear Calc 84.7 Estimated GFR > 60 Random Glucose 147 H (60-115) mg/dL Calcium 9.9 D (8.4-10.2) mg/dL Total Bilirubin 0.5 (0.0-1.0) mg/dL AST 44 H (5-37) U/L ALT 29 (0-40) U/L Alkaline Phosphatase 85 (39-117) U/L Total Protein 7.4 (6.5-8.0) g/dL Albumin 4.3 (3.5-5.0) g/dL Urine Color Yellow Urine Appearance Clear Urine pH 6.0 (5.0-9.0) Ur Specific [place] 1.010 (1.005-1.025) Urine Protein Negative (Neg-Trace) mg/dL Urine Glucose (UA) >=1000 H (Negative) mg/dL Urine Ketones 15 (Negative) mg/dL Urine Blood Negative (Negative) Urine Nitrite Negative (Negative) Ur Leukocyte Esterase Negative (Negative) Urine RBC 0-2 (0-2) /HPF Urine WBC 0-5 (0-5) /HPF Ur Squamous Epith Cells 0-2 (0-2) /HPF Other Crystals Present Urine Bacteria Trace (None Seen) Hyaline Casts 0-2 (0-2) /LPF Salicylates < 5.0 L (15-30) mg/dL Urine Opiates Screen Not Detected (Not Detect) Urine Fentanyl Screen Not Detected (Not Detect) Acetaminophen < 17 (<30) mcg/mL Ur Barbiturates Screen POSITIVE H (Not Detect) Ur Phencyclidine Scrn Not Detected (Not Detect) Ur Amphetamines Screen Not Detected (Not Detect) U Benzodiazepines Scrn POSITIVE H (Not Detect) Urine Cocaine Screen Not Detected (Not Detect) U Marijuana (THC) Screen Not Detected (Not Detect) Ethyl Alcohol 68 mg/dL 10/09/22 Range/Units 10:31 WBC 6.6 (4.8-10.8) X10*3/uL RBC 3.98 L (4.60-5.80) X10*6/uL Hgb 11.6 L (14.0-18.0) g/dl Hct 34.4 L (42.0-52.0) % MCV 86.4 (80.0-98.0) fL MCH 29.1 (27.0-33.0) pg MCHC 33.7 (31.0-36.0) g/dl RDW 14.8 (11.0-16.0) % Plt Count 414 H D (160-400) X10*3/uL MPV 10.2 (9.4-12.4) fL Immature Gran % (Auto) 0.6 H (0.0-0.4) % Neut % (Auto) 40.1 L (45-73) % Lymph % (Auto) 48.0 H (20-40) % [place] % (Auto) 9.5 (2-11) % Eos % (Auto) 1.5 (0-4) % Baso % (Auto) 0.3 (0-2) % Lymph # (Auto) 3.2 (1.2-4.9) X10*3/uL [place] # (Auto) 0.6 (0.1-1.2) X10*3/uL Eos # (Auto) 0.1 (0.0-0.4) X10*3/uL Baso # (Auto) 0.0 (0.0-0.2) X10*3/uL Abs Immat Gran (auto) 0.04 H (0.00-0.03) X10*3/uL Absolute Neuts (auto) 2.6 (2.0-8.3) x10*3/uL Absolute Nucleated RBC 0.000 (0.0-0.012) X10*3/uL Nucleated RBC % (auto) 0.0 (0.0-0.2) /100WBC Sodium (135-145) mmol/L Potassium (3.3-5.1) mmol/L Chloride (96-108) mmol/L Carbon Dioxide (22-29) mmol/L Anion Gap (12-20) BUN (9-16) mg/dL Creatinine (0.5-1.4) mg/dL Estim Creat Clear Calc Estimated GFR Random Glucose (60-115) mg/dL Calcium (8.4-10.2) mg/dL Total Bilirubin (0.0-1.0) mg/dL AST (5-37) U/L ALT (0-40) U/L Alkaline Phosphatase (39-117) U/L Total Protein (6.5-8.0) g/dL Albumin (3.5-5.0) g/dL Urine Color Urine Appearance Urine pH (5.0-9.0) Ur Specific [place] (1.005-1.025) Urine Protein (Neg-Trace) mg/dL Urine Glucose (UA) (Negative) mg/dL Urine Ketones (Negative) mg/dL Urine Blood (Negative) Urine Nitrite (Negative) Ur Leukocyte Esterase (Negative) Urine RBC (0-2) /HPF Urine WBC (0-5) /HPF Ur Squamous Epith Cells (0-2) /HPF Other Crystals Urine Bacteria (None Seen) Hyaline Casts (0-2) /LPF Salicylates (15-30) mg/dL Urine Opiates Screen (Not Detect) Urine Fentanyl Screen (Not Detect) Acetaminophen (<30) mcg/mL Ur Barbiturates Screen (Not Detect) Ur Phencyclidine Scrn (Not Detect) Ur Amphetamines Screen (Not Detect) U Benzodiazepines Scrn (Not Detect) Urine Cocaine Screen (Not Detect) U Marijuana (THC) Screen (Not Detect) Ethyl Alcohol mg/dL <ASH Pepper - Last Filed: 10/09/22 20:52> Independent Historian Clinical information obtained from an independent historian. History obtained from or confirmed by: Spouse <ASH Haji - Last Filed: 10/09/22 18:09> Critical Care Time Critical Care Time Critical Care Time: Yes <ASH Haji - Last Filed: 10/09/22 18:09> Total Critical Care Time: 45 <ASH Haji - Last Filed: 10/09/22 18:09> Attestation: I spent 45 minutes of Critical Care Time with this patient. This does not include time spent on separately reported billable procedures. <ASH Haji - Last Filed: 10/09/22 18:09> Discharge Plan Discharge Clinical Impression: Alcohol use disorder, severe, dependence <ASH Haji - Last Filed: 10/09/22 18:09> Patient Disposition: Xfer Other <ASH Haji - Last Filed: 10/09/22 18:09> Transfer Details: [facility] <ASH Haji - Last Filed: 10/09/22 18:09> [facility] <ASH Pepper - Last Filed: 10/09/22 20:52> Instructions: Abuse of Alcohol (ED) <ASH Haji - Last Filed: 10/09/22 18:09> Additional Instructions: Take your medications as prescribed. If you were prescribed antibiotics today, it is important that you take your medication to their entirety, do not skip any doses, do not finish them early. Follow-up with your primary care provider this week. Return to the emergency department with new or worsening symptoms. Such as fevers, chills, chest pain, shortness of breath, nausea, vomiting, dizziness, headache, vision changes, lethargy In case of emergency call 911 <ASH Haji - Last Filed: 10/09/22 18:09> Referrals: Sofiya Clark PA [Primary Care Provider] - 2 days <AHS Haji - Last Filed: 10/09/22 18:09> Interventions: [place]-Suicide Risk Severity Scale Last Done: 10/09/22 09:39 <ASH Haji - Last Filed: 10/09/22 18:09>
[2022-10-09 09:54] LABS: Appearance Urine Clear; Color Urine Yellow; Glucose Urine UA >=1000 mg/dL (Negative); Leukocyte Esterase Urine Negative (Negative); Nitrite Urine Negative (Negative); UMIC TRIGGER UACC YES; Urine Blood Negative (Negative); Urine Ketones 15 mg/dL (Negative); Urine Protein Negative (Neg-Trace)
[2022-10-09 10:01] LABS: Amphetamine Screen Urine Not Detected (Not Detect); Barbiturates, Urine POSITIVE (Not Detect); Benzodiazepines Screen Urine POSITIVE (Not Detect); Cannabinoid Screen Urine Not Detected (Not Detect); Cocaine Screen Urine Not Detected (Not Detect); Fentanyl, urine Not Detected (Not Detect); Opiate Screen Urine Not Detected (Not Detect); Phencyclidine Screen Urine Not Detected (Not Detect)
[2022-10-09 10:10] LABS: WBC Urine 0-5 /HPF (0-5)
[2022-10-09 10:11] LABS: RBC Urine 0-2 /HPF (0-2)
[2022-10-09 10:12] LABS: Bacteria Urine Trace (None Seen); Squamous Epithelial Cell Urine 0-2 /HPF (0-2)
[2022-10-09 10:13] LABS: Hyaline Casts Urine 0-2 /LPF (0-2); Other Crystals Urine Present
[2022-10-09] MEDS: PHENobarbitaL sodium 130 MG/ML VIAL 90 MG IM (10:34)
--- NOTE | 2022-10-09 10:35 | MHC.EDTECH ---
Labs drawn and sent
[2022-10-09 10:42] LABS: MANUAL DIFF FLAG NO
[2022-10-09 10:45] LABS: Basophils Percent Auto 0.3 % (0-2); Eosinophils Absolute Auto 0.1 X10*3/uL (0.0-0.4); Eosinophils Percent Auto 1.5 % (0-4); Hematocrit 34.4 % (42.0-52.0); Hemoglobin 11.6 g/dl (14.0-18.0); Imm Gran Abs Auto 0.04 X10*3/uL (0.00-0.03); Imm Gran Pct Auto 0.6 % (0.0-0.4); Lymphocytes Absolute Auto 3.2 X10*3/uL (1.2-4.9); Mean Corpuscular HGB Conc 33.7 g/dl (31.0-36.0); Mean Corpuscular Hemoglobin 29.1 pg (27.0-33.0); Mean Corpuscular Volume 86.4 fL (80.0-98.0); Mean Platelet Volume 10.2 fL (9.4-12.4); Monocytes Absolute Auto 0.6 X10*3/uL (0.1-1.2); Monocytes Percent Auto 9.5 % (2-11); Neutrophils Absolute Auto 2.6 x10*3/uL (2.0-8.3); Neutrophils Percent Auto 40.1 % (45-73); Platelet Count 414 X10*3/uL (160-400); Red Blood Count 3.98 X10*6/uL (4.60-5.80); Red Cell Distribution Width 14.8 % (11.0-16.0); White Blood Count 6.6 X10*3/uL (4.8-10.8)
[2022-10-09 11:04] LABS: Acetaminophen LAB < 17 mcg/mL (<30); Alanine Aminotransferase 29 U/L (0-40); Albumin Level 4.3 g/dL (3.5-5.0); Alkaline Phosphatase 85 U/L (39-117); Aspartate Amino Transferase 44 U/L (5-37); Bilirubin Total 0.5 mg/dL (0.0-1.0); Blood Urea Nitrogen 16 mg/dL (9-16); Calcium 9.9 mg/dL (8.4-10.2); Creatinine Clr Calc Pharmacy 84.7; Estimated Glomerular Filt Rate > 60; Ethanol 68 mg/dL; Glucose Random 147 mg/dL (60-115); Salicylate < 5.0 mg/dL (15-30); Total Protein 7.4 g/dL (6.5-8.0)
[2022-10-09 11:14] LABS: Anion Gap 28 (12-20); Carbon Dioxide 18 mmol/L (22-29); Chloride 92 mmol/L (96-108); Potassium 4.7 mmol/L (3.3-5.1); Sodium 133 mmol/L (135-145)
[2022-10-09] MEDS: PHENobarbitaL sodium 130 MG/ML VIAL 310 MG IM (12:17)
--- NOTE | 2022-10-09 13:34 | MHC.RECOVRN ---
Met with pt in [place] to discuss substance use. Pt laying on stretcher, sleeping after receiving phenobarb, wakes to voice. Pt reports alcohol use, 3 pints rum daily since February 2022. Prior to that, pt had been in recovery x 12 years. Pt requesting ATS, prefers anywhere but [facility]. Recovery team will conduct bedsearch.
[2022-10-09] MEDS: 0.9 % Sodium Chloride 1,000 ML 999 ML IV (14:12)
[2022-10-09 14:32] VITALS: BP 187/103; PULSE 72; RESP 15; TEMP 37.4; O2SAT 95
[2022-10-09] MEDS: PHENobarbitaL sodium 130 MG/ML VIAL 232.7 MG IM (15:33)
--- NOTE | 2022-10-09 15:55 | MHC.RECOVRN ---
Spoke with Elsie at [facility] OT. Pt last received 160 mg methadone on 10/07/22 at 0858. Frannie Dumont APRN, and ED provider aware.
--- NOTE | 2022-10-09 16:34 | P.PNADD_ITS ---
Subjective Subjective Date of Service: 10/09/22 Reason For Visit: SEEKING DETOX Interim History: Patient is a 47 year old male with dx of OUD and AUD currently in ED awaiting admission to [facility] facility for alcohol detox. Declining admission to [facility] as he wants to be far away to not have the option of leaving against medical advice. Per patient and , patient had been in recovery for 12 years up until the summer when he began drinking again. He has been in treatment for OUD at [facility], [place]--methadone dose was reportedly 200mg, however has been decreased over time due to +breathalyzer when he presents for dose. Last dose verified as being administered on 10/07/22 160mg. Patient has been accepted to [facility], however pending methadone dose administration and transport. Seen by this fiction and nonfiction prose writer in ED. Patient quite drowsy, and soft spoken. Per , had just received second dose of phenobarbitol and since then and been more sleepy. This fiction and nonfiction prose writer expressed concern regarding dose of methadone at this time given patients presentation and inability to fully wake and engage in conversation. Patient asking for methadone several times. Discussed case with attending ED provider. Agreed to administer 70mg methadone to address opioid withdrawal sx. Discussed concern for transport via Ly[employer] to [facility]--patient must be able to ambulate independently and awake enough to get into vehicle. Review of Systems Constitutional: Reports as per HPI, Reports body ache(s) and Reports malaise Mental Status Exam Mental Status Exam Level of Consciousness: Drowsy and Lethargic Judgement: Fair Diagnostics Vital Signs (24Hr): Vital Signs - 24 hr 10/09/22 09:33 10/09/22 14:32 Temperature 99.4 F 99.3 F Pulse Rate 79 72 Respiratory Rate 16 15 Blood Pressure 142/82 H 187/103 H Pulse Oximetry 97 95 Oxygen Delivery Method Room Air Room Air BMI result Body Mass Index 27.1 Labs 10/09/22 10:31 10/09/22 10:31 Labs: Laboratory Results - last 48 hr 10/09/22 10/09/22 10/09/22 09:45 09:45 10:31 WBC RBC Hgb Hct MCV MCH MCHC RDW Plt Count MPV Immature Gran % (Auto) Neut % (Auto) Lymph % (Auto) [place] % (Auto) Eos % (Auto) Baso % (Auto) Lymph # (Auto) [place] # (Auto) Eos # (Auto) Baso # (Auto) Abs Immat Gran (auto) Absolute Neuts (auto) Absolute Nucleated RBC Nucleated RBC % (auto) Sodium 133 L Potassium 4.7 Chloride 92 L Carbon Dioxide 18 L Anion Gap 28 H BUN 16 Creatinine 1.17 Estim Creat Clear Calc 84.7 Estimated GFR > 60 Random Glucose 147 H Calcium 9.9 D Total Bilirubin 0.5 AST 44 H ALT 29 Alkaline Phosphatase 85 Total Protein 7.4 Albumin 4.3 Urine Color Yellow Urine Appearance Clear Urine pH 6.0 Ur Specific [place] 1.010 Urine Protein Negative Urine Glucose (UA) >=1000 H Urine Ketones 15 Urine Blood Negative Urine Nitrite Negative Ur Leukocyte Esterase Negative Urine RBC 0-2 Urine WBC 0-5 Ur Squamous Epith Cells 0-2 Other Crystals Present Urine Bacteria Trace Hyaline Casts 0-2 Salicylates < 5.0 L Urine Opiates Screen Not Detected Urine Fentanyl Screen Not Detected Acetaminophen < 17 Ur Barbiturates Screen POSITIVE H Ur Phencyclidine Scrn Not Detected Ur Amphetamines Screen Not Detected U Benzodiazepines Scrn POSITIVE H Urine Cocaine Screen Not Detected U Marijuana (THC) Screen Not Detected Ethyl Alcohol 68 10/09/22 10:31 WBC 6.6 RBC 3.98 L Hgb 11.6 L Hct 34.4 L MCV 86.4 MCH 29.1 MCHC 33.7 RDW 14.8 Plt Count 414 H D MPV 10.2 Immature Gran % (Auto) 0.6 H Neut % (Auto) 40.1 L Lymph % (Auto) 48.0 H [place] % (Auto) 9.5 Eos % (Auto) 1.5 Baso % (Auto) 0.3 Lymph # (Auto) 3.2 [place] # (Auto) 0.6 Eos # (Auto) 0.1 Baso # (Auto) 0.0 Abs Immat Gran (auto) 0.04 H Absolute Neuts (auto) 2.6 Absolute Nucleated RBC 0.000 Nucleated RBC % (auto) 0.0 Sodium Potassium Chloride Carbon Dioxide Anion Gap BUN Creatinine Estim Creat Clear Calc Estimated GFR Random Glucose Calcium Total Bilirubin AST ALT Alkaline Phosphatase Total Protein Albumin Urine Color Urine Appearance Urine pH Ur Specific [place] Urine Protein Urine Glucose (UA) Urine Ketones Urine Blood Urine Nitrite Ur Leukocyte Esterase Urine RBC Urine WBC Ur Squamous Epith Cells Other Crystals Urine Bacteria Hyaline Casts Salicylates Urine Opiates Screen Urine Fentanyl Screen Acetaminophen Ur Barbiturates Screen Ur Phencyclidine Scrn Ur Amphetamines Screen U Benzodiazepines Scrn Urine Cocaine Screen U Marijuana (THC) Screen Ethyl Alcohol Medications Allergies Allergies Allergy/AdvReac Type Severity Reaction Status Date / Time bee pollen [Bee Stings] Allergy Severe ANAPHYLAXIS Verified 10/06/22 10:51 codeine [Codeine] Allergy Mild Verified 10/06/22 10:51 Assessment & Plan Assessment & Plan (1) Alcohol use disorder, severe, dependence: Status: Acute Code(s): F10.20 - Alcohol dependence, uncomplicated Assessment and Plan: * pending admission to [facility] * methadone 70mg ordered * if at time of transport patient is not able to ambulate to vehicle or awaken enough, do not transport. Total time managing care of this patient today _35___ minutes.
[2022-10-09] MEDS: methADONE HCl 20 MG/2 ML ORAL.CONC 70 MG PO (17:25)
--- NOTE | 2022-10-09 17:31 | PC.NURSE ---
medicated pt with methadone . pt asked why he was getting so little. informed him that his dose gets cut when he misses several doses. pt reported that he is going to AMA. encouraged pt to stay. pt family at bedside reported that he will be staying. educated pt on dangers of AMA
--- NOTE | 2022-10-09 20:00 | PC.NURSE ---
This RN notified by registration that pts ride to detox had arrived. This RN noted that pt was not ready for discharge. This RN discussing situation with ASH Ken who assumed care of this pt from Micheline. Suellen unsure of the plan, unsure if pt has a bed, etc. This RN contacting Care Team regarding plan for pt. Care Team stated that pts case had been handled by the recovery agent and they were unaware. Multiple attempts to locate recovery agent unsuccessful. This RN contacting [facility] which is where the patient was told he had a bed. Per [facility] @ [phone], pt had not been accepted and did not have a bed. Pt trying to leave AMA but was encouraged by this RN and Suellen ALEMAN to remain in the ED until detox could be obtained for pt. Pt agreeable. Pt moved into room 2 for comfort and privacy. transit coach operator back in the ED, stating that pt did indeed have a detox bed at [facility]. This RN explaining to the recovery agent that he needed to call [facility] for clarification as this RN was told he did not have a bed. This RN expressing frustration to recovery agent over the situation as it was very unfair to the patient that the plan keeps changing. transit coach operator faxing file to [facility] for review. Per recovery agent, Care Team assuming care of pt. Care Team later contacting this RN stating that pt has been accepted however pt had already left AMA. This RN contacting RN on the number listed in chart advising pt that he did have a bed available tonight. This RN encouraging pt go to detox or return to the ED for management of their alcohol withdrawal symptoms. This RN also speaking to . expresses understanding of the situation @ this time.
[2022-10-09] MEDS: PHENobarbitaL sodium 130 MG/ML VIAL IM ×2 (20:46→22:26)
--- NOTE | 2022-10-09 20:52 | PC.NURSE ---
pt medicated per provider order, IV removed, pt to d/c w family and security systems sales representative to go to treatment facility.
[2022-10-09] MEDS: HaloperidoL 5 MG TABLET PO (21:41)
--- NOTE | 2022-10-09 21:56 | MHC.RECOVSUP ---
? Reason for consult:Etoh o? Current location:ED02? o? Identified substance use concern:? -? Withdrawal -? Seeking ATS (detox) -? Support ? Intervention: o? ATS bed search started/completed/in process o? MAT started or to be started o? Community resources provided o? Harm reduction discussion ? Plan: o? Bed search in progress to o? Follow up tomorrow? ? Additional information:RC called [facility] they informed me they had beds and pt can come... communication wasn't clear on my behalf, I called [facility] and was told to FAX a referral so I did, waiting on a call from [facility] upon review.
--- NOTE | 2022-10-09 22:37 | PC.NURSE ---
PT pacing in and out of room,very anxious states we have four kids at home, I can't be waiting around . PT requesting d/c papers, provider aware. PT made aware of risks of leaving, PT continued to request to leave. AMA form signed. PT ambulatory.
--- NOTE | 2022-10-09 22:45 | PC.NURSE ---
This RN was notified by Ivana DE LEON that pt left AMA. Care Team calling this RN stating that they heard [facility] from [facility] and that the pt is accepted and a bed is available. Per pt forget it, I'll go in the morning. This RN explaining concern to pt that the bed may be gone by morning, this RN encouraging pt to report to [facility] for admission as planned.
== END 2022-10-09 23:00 | disposition left against medical advice (07) ==
PROVIDERS: Physician Assistant Medical; Emergency Provider Emergency Medicine; PCP Physician Assistant
DX: F10.239 Alcohol dependence with withdrawal, unspecified (principal); F15.10 Other stimulant abuse, uncomplicated; Y90.3 Blood alcohol level of 60-79 mg/100 ml; Z79.899 Other long term (current) drug therapy
CPT/HCPCS: 36415; 80053; 80143; 80179; 80307; 81001; 82077; 85025; 96360; 96361; 96372; 99285; J2560